=== PATIENT | male | born 1960 | race Caucasian/White ===

== ENCOUNTER 2017-03-21 12:57 | Emergency (ER) | payer BC ==
[~2017-03-21] VITALS: Ht 165.1 cm; Wt 79.0 kg
[2017-03-21 13:03] VITALS: Ht 165.1 cm; Wt 79.0 kg
[2017-03-21] MEDS ORDERED: SOD CHLORIDE 0.9% 1,000 ML IV STA (14:38)
[2017-03-21 14:53] LABS: BASOPHIL # 0.1 10^3/ul (0.0-0.1); BASOPHILS % 0.9 % (0.0-2.0); EOSINOPHILS % 0.4 % (0.0-7.0); HEMATOCRIT 48.9 % (42.0-52.0); HEMOGLOBIN 17.2 g/dl (14.0-18.0); LYMPHOCYTES # 1.3 10^3/ul (0.8-2.9); LYMPHOCYTES % 19.3 % (15.0-51.0); MEAN CORPUSCULAR HEMOGLOBIN 30.2 pg (29.0-33.0); MEAN CORPUSCULAR HGB CONC 35.2 g/dl (32.0-37.0); MEAN CORPUSCULAR VOLUME 85.8 fl (82.0-101.0); MEAN PLATELET VOLUME 9.6 fl (7.4-10.4); MONOCYTE # 0.6 10^3/ul (0.3-0.9); MONOCYTES % 8.2 % (0.0-11.0); NEUTROPHIL # 4.8 10^3/ul (1.6-7.5); NEUTROPHILS % 70.6 % (39.0-77.0); PLATELET COUNT 252 10^3/UL (140-415); RED CELL DISTRIBUTION WIDTH 12.2 % (11.5-14.5); WHITE BLOOD COUNT 6.8 10^3/ul (4.8-10.8)
[2017-03-21] MEDS ORDERED: WARF3TAB PO (15:15)
[2017-03-21] MEDS ORDERED: METO-448 PO (15:16)
[2017-03-21 15:19] LABS: ALBUMIN 4.9 g/dl (3.3-4.9); ALBUMIN/GLOBULIN RATIO 1.4; BILIRUBIN,INDIRECT 1.1 mg/dl (0-1.1); BILIRUBIN,TOTAL 1.1 mg/dl (0.2-1.3); CALCIUM 10.1 mg/dl (8.4-10.2); CREATININE 0.94 mg/dl (0.61-1.24); POTASSIUM 5.1 mmol/L (3.5-5.1); TOTAL PROTEIN 8.4 g/dl (6.1-8.1)
[2017-03-21 15:34] LABS: TROPONIN-I 0.023 ng/ml (0.00-0.12)
--- NOTE | 2017-03-21 16:37 | ERD ---
ER Documentation Chief Complaint Date/Time DATE: 03/21/17 TIME: 16:31 Chief Complaint PALPITATIONS X 3 TODAY HPI This a 56-year-old who has a history of arrhythmia. The patient has a history of SVT and had multiple episodes followed by ablation which revealed 6 superficial areas that need to be treated. Patient was symptom-free for a while then developed SVT again which was thought to be due to hypokalemia. The patient has subsequently been taking potassium to prevent this recurrence of arrhythmia. Today he stated he felt the arrhythmia come back and he was unable to resolve it by doing a Valsalva maneuver. He says this usually resolves the issue but did not work this time. He is not having any chest pain or shortness of breath or dizziness. The patient says in the waiting room he felt it come on again he notified the staff here and had an EKG which showed a tachycardia but then he was able to break it by Valsalva. The patient is here because he is concerned he may be overdosing himself on potassium supplementation ROS All systems reviewed and are negative except as per history of present illness. Medications Home Meds Active Scripts Diltiazem Hcl* (Cardizem CD*) 240 Mg Cap.sr.24h, 240 MG PO DAILY, #30 CAP Prov:YARELIS ALVAREZ DO 03/21/17 Reported Medications Metoprolol Tartrate* (Lopressor*) 25 Mg Tab, 12.5 MG PO BID, #60 TAB 03/21/17 Warfarin Sodium* (Coumadin*) 3 Mg Tablet, 9.25 MG PO DAILY, TAB 03/21/17 Allergies Allergies: Coded Allergies: No Known Allergy (Unverified , 03/21/17) FmHx Family History: No coronary disease Physical Exam Vitals Vital Signs Date Time Temp Pulse Resp B/P Pulse Ox O2 Delivery O2 Flow Rate FiO2 03/21/17 18:31 198 20 133/93 100 Room Air 03/21/17 18:03 91 16 133/93 100 Room Air 03/21/17 17:16 73 17 148/81 100 Mask 5.0 03/21/17 17:10 Simple Mask 5 03/21/17 16:50 205 24 158/88 98 Room Air 03/21/17 13:42 104 22 166/78 100 Room Air 03/21/17 13:03 98.1 91 18 140/87 99 Physical Exam Const: Well-developed, well-nourished Head: Atraumatic, normocephalic Eyes: Normal Conjunctiva, PERRLA, EOMI, normal sclera, no nystagmus ENT: Normal External Ears, Nose and Mouth, moist mucus membranes. Neck: Full range of motion. No meningismus, no lymphadenopathy. Resp: Clear to auscultation bilaterally, no wheezing, rhonchi, rales Cardio: Tachycardia with slight irregularity, no murmurs, S1 S2 present Abd: Soft, non tender x 4, non distended. Normal bowel sounds, no guarding or rebound, no pulsitile abdominal masses or bruits Skin: No petechiae or rashes, no ecchymosis , no maculopapular rash Back: No midline or flank tenderness Ext: No cyanosis, or edema, FROM x 4, normal inspection, neurovascularly intact x 4 Neur: Awake and alert, STR 5/5 x 4, sensation intact x 4, no focal findings, cerebellum intact Psych: [Anxious Result Diagram: 03/21/17 1445 03/21/17 1445 Results 24 hrs Laboratory Tests Test 03/21/17 14:45 White Blood Count 6.810^3/ul Red Blood Count 5.7010^6/ul Hemoglobin 17.2g/dl Hematocrit 48.9% Mean Corpuscular Volume 85.8fl Mean Corpuscular Hemoglobin 30.2pg Mean Corpuscular Hemoglobin Concent 35.2g/dl Red Cell Distribution Width 12.2% Platelet Count 96430^3/UL Mean Platelet Volume 9.6fl Neutrophils % 70.6% Lymphocytes % 19.3% Monocytes % 8.2% Eosinophils % 0.4% Basophils % 0.9% Nucleated Red Blood Cells % 0.0/100WBC Neutrophils # 4.810^3/ul Lymphocytes # 1.310^3/ul Monocytes # 0.610^3/ul Eosinophils # 0.010^3/ul Basophils # 0.110^3/ul Nucleated Red Blood Cells # 0.010^3/ul Sodium Level 140mmol/L Potassium Level 5.1mmol/L Chloride Level 102mmol/L Carbon Dioxide Level 24mmol/L Anion Gap 19 Blood Urea Nitrogen 18mg/dl Creatinine 0.94mg/dl Glucose Level 141mg/dl Calcium Level 10.1mg/dl Total Bilirubin 1.1mg/dl Direct Bilirubin 0.00mg/dl Indirect Bilirubin 1.1mg/dl Aspartate Amino Transf (AST/SGOT) 33IU/L Alanine Aminotransferase (ALT/SGPT) 46IU/L Alkaline Phosphatase 70IU/L Troponin I 0.023ng/ml Total Protein 8.4g/dl Albumin 4.9g/dl Globulin 3.50g/dl Albumin/Globulin Ratio 1.40 Current Medications Medications (Trade) Dose Ordered Sig/Chantel Route PRN Reason Start Time Stop Time Status Last Admin Dose Admin Sodium Chloride (NS) 1,000 ml @ 1,000 mls/hr Q1H STAT IV 03/21/17 14:38 03/21/17 15:37 DC 03/21/17 15:18 Adenosine 12 mg 12 mg ONCE ONCE IV 03/21/17 17:00 03/21/17 17:01 DC 03/21/17 17:09 Adenosine (Adenosine) 6 ml @ ud STK-MED ONCE .ROUTE 03/21/17 16:45 03/21/17 16:46 DC Diltiazem HCl (Cardizem Iv) 20 mg ONCE ONCE IV 03/21/17 17:00 03/21/17 17:01 DC Diltiazem HCl (Cardizem Iv) 25 mg STK-MED ONCE .ROUTE 03/21/17 16:53 03/21/17 16:54 DC Diltiazem HCl (Cardizem Iv) 20 mg ONCE ONCE IV 03/21/17 18:30 03/21/17 18:31 DC 03/21/17 18:29 Metoprolol Tartrate (Lopressor) 50 mg ONCE ONCE PO 03/21/17 18:30 03/21/17 18:31 DC 03/21/17 18:29 Procedures/MDM Patient is refusing chest x-ray EKG: Rate/Rhythm: This rhythm normal axis, peaked T waves in the inferior and anterior leads QRS, ST, QT: NORMAL ND, QRS, QT] Impression: NORMAL EKG EKG: Rate/Rhythm: SVT, heart rate 158 units with some anterior lateral depression of ST QRS, ST, QT: NORMAL ND, QRS, QT] Impression: SVT, abnormal EKG EKG: Rate/Rhythm: Tachycardia heart rate 122 with PVC QRS, ST, QT: NORMAL ND, QRS, QT] Impression: Sinus tachycardia Patient suddenly went into tachycardia again. EKG: Rate/Rhythm: SVT QRS, ST, QT: NORMAL ND, QRS, QT] Impression: SVT he received 20 mg of IV Cardizem About 20 minutes later the patient again went into SVT He received another bolus of Cardizem. EKG: Rate/Rhythm: Sinus rhythm with occasional ectopy QRS, ST, QT: NORMAL ND, QRS, QT] Impression: NORMAL EKG Patient then received oral Lopressor. The patient was observed in the ER. The patient had no further events his heart rate is now 75. I will have him follow-up with his registered nurse behavioral health. The patient is not taking his beta-rome. We will put him on diltiazem 240 daily and follow-up with his physician Critical Care Time: 40 minutes Treatments/Evaluations: Close monitoring and treatment of unstable vital signs, cardiorespiratory, and neurologic status, while maintaining tight balance of fluid, respiratory, and cardiac interventions. This time includes discussing the case with the patient and the patient's family. This time does not include all procedures stated elsewhere in this record. This time also includes reviewing old records, labs and radiological studies. This time includes examining and re-examining the patient. Additionally, this time also includes arranging care with admitting and consulting physicians. Departure Diagnosis: Primary Impression: SVT (supraventricular tachycardia) Condition: Stable YARELIS ALVAREZ DO Mar 21, 2017 16:37
[2017-03-21] MEDS ORDERED: ADENOSINE 6 ML ONE (16:45)
[2017-03-21] MEDS ORDERED: DILTIAZEM 25 MG INJ ONE (16:53)
[2017-03-21] MEDS ORDERED: ADENOSINE 6 MG INJ IV ONE (17:00)
[2017-03-21] MEDS ORDERED: DILTIAZEM 25 MG INJ IV ONE ×2 (17:00→18:30)
[2017-03-21] MEDS ORDERED: METOPROLOL 50 MG TAB PO ONE (18:30)
[2017-03-21] MEDS ORDERED: DILT240C79 PO (19:42)
[2017-03-21 20:16] VITALS: BP 127/92; PULSE 92; RESP 16
== END 2017-03-21 20:17 | disposition home or self-care (01) ==
LOC: E/R 12:57
DX: I47.1 Supraventricular tachycardia (principal); Z79.01 Long term (current) use of anticoagulants
CPT/HCPCS: 36415; 80053; 84484; 85025; 93005; 96374; 96375; 99291; J0153; J7030